=== PATIENT | female | born 1995 | race Two or more races ===

== ENCOUNTER 2019-01-11 16:34 | Emergency (ER) | payer MEDICAID ==
[~2019-01-11] VITALS: Ht 175.3 cm; Wt 79.2 kg
[2019-01-11 18:12] VITALS: BP 101/68
[2019-01-11 18:47] LABS: Basophils # (auto) 0 uL; Basophils % (auto) 0.4 % (0.0-2.0); Eosinophils # (auto) 0.1 uL; Hematocrit 35.2 % (36.0-46.0); Hemoglobin 11.6 g/dL (12.2-16.2); Lymphocytes # (auto) 1.7 uL; Lymphocytes % (auto) 19.9 % (10.0-50.0); Mean Corpuscular Hemoglobin 28.6 pg (28.0-32.0); Mean Corpuscular Hgb Conc. 32.9 g/dL (32.0-36.0); Monocytes # (auto) 0.6 uL; Monocytes % (auto) 6.7 % (0.0-12.0); Nucleated Red Blood Cells % 0.1 %; Platelet Count (auto) 250 10^3/uL (140-450); Red Blood Cells 4.05 10^6/uL (4.0-5.20); Red Cell Distribution Width 15.5 % (11.8-14.3); White Blood Cell 8.4 10^3/uL (4.4-10.8)
[2019-01-11 20:49] LABS: Urine Bacteria MOD /hpf (None Seen); Urine Blood 1+ /uL (Negative); Urine Specific Gravity 1.024 (1.001-1.035); Urine WBC 116 /hpf (0 - 5)
== END 2019-01-11 19:52 | disposition home or self-care (01) ==
LOC: ER 16:34
DX: O20.0 Threatened abortion (principal); O99.332 Smoking (tobacco) complicating pregnancy, second trimester; Z3A.16 16 weeks gestation of pregnancy
CPT/HCPCS: 36415; 76805; 81001; 84702; 85025; 94761

== ENCOUNTER 2019-06-05 20:38 | Observation (INO) | payer MEDICAID | END 2019-06-06 00:45 | disposition home or self-care (01) | DRG 566 | LOC: LDRP 20:38 | PROVIDERS: ADMIT Obstetrics & Gynecology; ATTEND Obstetrics & Gynecology | DX: O40.3XX0 Polyhydramnios, third trimester, not applicable or unspecified (principal); F17.200 Nicotine dependence, unspecified, uncomplicated; O99.333 Smoking (tobacco) complicating pregnancy, third trimester; Z3A.37 37 weeks gestation of pregnancy | CPT/HCPCS: 59025; 76818; 81002; G0378 ==

== ENCOUNTER 2019-06-08 19:55 | Observation (INO) | payer MEDICAID ==
[2019-06-08] MEDS ORDERED: ACETAMINOPHEN 325 MG TAB PO ONE (22:15)
== END 2019-06-08 22:49 | disposition home or self-care (01) | DRG 566 ==
LOC: LDRP 19:55
PROVIDERS: ADMIT Specialist; ATTEND Specialist
DX: O26.893 Other specified pregnancy related conditions, third trimester (principal); F17.210 Nicotine dependence, cigarettes, uncomplicated; K08.89 Other specified disorders of teeth and supporting structures; R51 Headache; O99.89 Other specified diseases and conditions complicating pregnancy, childbirth and the puerperium; O99.333 Smoking (tobacco) complicating pregnancy, third trimester; Z3A.37 37 weeks gestation of pregnancy
CPT/HCPCS: 59025; 76818; 81002; G0378

== ENCOUNTER 2019-06-11 19:13 | Observation (INO) | payer MEDICAID | END 2019-06-11 20:26 | disposition home or self-care (01) | DRG 566 | LOC: LDRP 19:13 | PROVIDERS: ADMIT Obstetrics & Gynecology; ATTEND Obstetrics & Gynecology | DX: O40.3XX0 Polyhydramnios, third trimester, not applicable or unspecified (principal); F17.200 Nicotine dependence, unspecified, uncomplicated; O99.333 Smoking (tobacco) complicating pregnancy, third trimester; Z3A.38 38 weeks gestation of pregnancy | CPT/HCPCS: 59025; 76818; 81002; G0378 ==

== ENCOUNTER 2019-06-14 19:52 | Observation (INO) | payer MEDICAID ==
[~2019-06-14] VITALS: Ht 175.3 cm; Wt 98.0 kg
[2019-06-14] MEDS ORDERED: LACTATED RINGER'S 1,000 ML IV ONE (22:00)
== END 2019-06-14 23:15 | disposition home or self-care (01) | DRG 566 ==
LOC: LDRP 19:52
PROVIDERS: ADMIT Specialist; ATTEND Specialist
DX: O40.3XX0 Polyhydramnios, third trimester, not applicable or unspecified (principal); F17.200 Nicotine dependence, unspecified, uncomplicated; O99.333 Smoking (tobacco) complicating pregnancy, third trimester; Z3A.38 38 weeks gestation of pregnancy
CPT/HCPCS: 59025; 76818; 81002; G0378

== ENCOUNTER 2019-06-20 04:42 | Inpatient (IN) | payer MEDICAID ==
[2019-06-20] VITALS (8 sets, daily range): BP systolic 116–130; BP diastolic 61–74
[~2019-06-20] VITALS: Ht 175.3 cm; Wt 98.0 kg
[2019-06-20] MEDS ORDERED: LACT. RINGERS/OXYTOCIN 20UNITS 1,000 ML IV SCH ×2 (05:05→15:46)
[2019-06-20] MEDS ORDERED: DERMOPLAST 60ML BOTTLE TOP PRN (05:15)
[2019-06-20] MEDS ORDERED: METHYLERGONOVINE MALEATE 0.2 MG/ML AMP IM PRN (05:15)
[2019-06-20] MEDS ORDERED: PHISODERM TOP SOLN 240ML BTL TOP PRN (05:15)
[2019-06-20] MEDS ORDERED: WITCH HAZEL-GLYCERIN PAD TOP PRN (05:15)
[2019-06-20] MEDS ORDERED: LIDOCAINE 2%HCL (LOCAL ANESTH.) INJ 20ML MDV ID PRN (05:15)
[2019-06-20] MEDS: LACTATED RINGER'S 1,000 ML IV SCH ×3 (05:44→09:15)
[2019-06-20] MEDS ORDERED: BUTORPHANOL TARTRATE 2 MG/1 ML VIAL IV PRN (05:45)
[2019-06-20] MEDS ORDERED: PENICILLIN G POT 5MIL/D5 50ML 50 ML IV ONE ×2 (06:00→06:03)
[2019-06-20 06:18] LABS: Basophils # (auto) 0 uL; Hemoglobin 8.6 g/dL (12.2-16.2); Lymphocytes # (auto) 1.5 uL; Lymphocytes % (auto) 20.2 % (10.0-50.0); Monocytes # (auto) 0.4 uL; Neutrophils # (auto) 5.4 uL; Red Blood Cells 3.32 10^6/uL (4.0-5.20); White Blood Cell 7.4 10^3/uL (4.4-10.8)
[2019-06-20 06:19] LABS: Basophils % (auto) 0.5 % (0.0-2.0); Eosinophils # (auto) 0 uL; Eosinophils % (auto) 0.6 % (0.0-7.0); Hematocrit 26.6 % (36.0-46.0); Mean Corpuscular Hemoglobin 25.9 pg (28.0-32.0); Mean Corpuscular Hgb Conc. 32.3 g/dL (32.0-36.0); Mean Corpuscular Volume 80.2 fL (80.0-100.0); Monocytes % (auto) 5.8 % (0.0-12.0); Neutrophils % (auto) 72.9 % (37.0-80.0); Platelet Count (auto) 223 10^3/uL (140-450)
[2019-06-20 06:26] LABS: Albumin 2.4 g/dL (3.4-5.0); BUN/Creatinine Ratio 13.6; Calcium 8.5 mg/dL (8.5-10.1); Potassium 3.9 mmol/L (3.5-5.1)
[2019-06-20 06:28] LABS: Bilirubin, Total 0.4 mg/dL (0.2-1.0); Total Protein 6.3 g/dL (6.4-8.2)
[2019-06-20 06:33] LABS: INR < 0.93 (0.9-1.15); Partial Thromboplastin Time 25.6 sec (23.64-32.05)
[2019-06-20] MEDS ORDERED: ePHEDrine SULFATE 50 MG/ML AMP IV ONE (07:30)
[2019-06-20] MEDS ORDERED: NALOXONE HCL 0.4 MG/ML VIAL IV ONE (07:30)
[2019-06-20] MEDS ORDERED: fentaNYL W ROPIVACAINE 150 ML EPI SCH (07:30)
[2019-06-20] MEDS ORDERED: PENICILLIN G POTASSIUM 2,500,000 UNITS in D5W 5% 50 ML IV SCH (10:00)
[2019-06-20 10:34] LABS: Urine Bacteria NONE SEEN /hpf (None Seen); Urine Blood Negative /uL (Negative); Urine Specific Gravity 1.013 (1.001-1.035); Urine WBC 1 /hpf (0 - 5)
[2019-06-20 10:40] LABS: Alcohol, Urine < 3.0 mg/dL (0-5); Amphetamine Screen, Urine NEGATIVE (NEGATIVE); Barbiturate Scree,Urine NEGATIVE (NEGATIVE); Benzodiazephine Screen, Urine NEGATIVE (NEGATIVE); Cannabinoid Screen, Urine NEGATIVE (NEGATIVE); Cocaine Screen, Urine NEGATIVE (NEGATIVE); Opiate Scree,Urine NEGATIVE (NEGATIVE); Phencyclidine Screen, Urine NEGATIVE (NEGATIVE)
[2019-06-20] MEDS ORDERED: ONDANSETRON HCL 4 MG/2 ML VIAL IV PRN (11:30)
[2019-06-20] MEDS: ACETAMINOPHEN 325 MG TAB PO PRN (13:13)
--- NOTE | 2019-06-20 13:45 | NUR ---
PT has pox like ramírez on abd which some appear to be open sores and also has ramírez on bilateral legs and upper back. PT states she recently broke out in a rash and picked at it ad that her boyfriend also got the rash. PT states she thinks it might be "bed bugs Addendum: 06/20/19 at 1501 by John Navarrete RN Amended: Links added.
[2019-06-20] MEDS ORDERED: LABETALOL HCL 200 MG TAB PO ONE (14:00)
--- NOTE | 2019-06-20 14:17 | NUR ---
Report received from Veronica Navarrete RN on stable pt. Assumed care.
[2019-06-20 14:18] LABS: Basophils # (auto) 0 uL; Eosinophils # (auto) 0 uL; Lymphocytes # (auto) 0.9 uL; Monocytes # (auto) 0.6 uL
[2019-06-20 14:20] LABS: Basophils % (auto) 0.2 % (0.0-2.0); Eosinophils % (auto) 0.1 % (0.0-7.0); Hematocrit 24.9 % (36.0-46.0); Lymphocytes % (auto) 7.1 % (10.0-50.0); Mean Corpuscular Hgb Conc. 32.2 g/dL (32.0-36.0); Mean Corpuscular Volume 80.6 fL (80.0-100.0); Monocytes % (auto) 4.9 % (0.0-12.0); Neutrophils # (auto) 10.5 uL; Neutrophils % (auto) 87.7 % (37.0-80.0); Platelet Count (auto) 198 10^3/uL (140-450); Red Blood Cells 3.09 10^6/uL (4.0-5.20); Red Cell Distribution Width 16.1 % (11.8-14.3); White Blood Cell 11.9 10^3/uL (4.4-10.8)
--- NOTE | 2019-06-20 14:30 | NUR ---
Report given to Mirlande Lopez RN
--- NOTE | 2019-06-20 14:35 | NUR ---
Lolis care performed and pads changed, ice pad placed for moderate swelling. Bleeding moderate to heavy with fundus at u and firm. retana catheter emptied at this time
[2019-06-20 14:36] LABS: Albumin 1.9 g/dL (3.4-5.0); Calcium 7.8 mg/dL (8.5-10.1); Potassium 3.7 mmol/L (3.5-5.1); Uric Acid 6.3 mg/dL (2.6-6.0)
[2019-06-20 14:38] LABS: Bilirubin, Total 0.3 mg/dL (0.2-1.0)
[2019-06-20 14:40] LABS: INR 0.93 (0.9-1.15); Partial Thromboplastin Time 29.1 sec (23.64-32.05)
--- NOTE | 2019-06-20 14:47 | NUR ---
Call placed to Dr Latham, updated him on PT status including PT bleeding is moderated to heavy, temp now 99.7, and BP 127/61 and labetalol has not been given, CBC results. Orders received to hold labetalol, repeat CBC in AM, give second bag of pit at 125ml/hr. Orders read back to be implemented
[2019-06-20] MEDS: IBUPROFEN 600 MG TAB PO PRN ×2 (16:24→20:04)
--- NOTE | 2019-06-20 16:30 | NUR ---
Deedee care performed, moderate amount of bleeding noted, tucks pads, phisoderm, and ice pack applied to perineum. New under pad, deedee pad, and gown provided.
--- NOTE | 2019-06-20 17:22 | NUR ---
Ambulation: VS taken, fundus and lochia assessed. Pt assisted to side of bed to dangle prior to ambulation. Pt denies any dizziness. Patient OOB with standby assistance by RN. Patient ambulated to chair with steady gait. Clean gown provided and bed linen changed. Patient ambulated back to bed with steady gait and no distress noted.
--- NOTE | 2019-06-20 17:39 | NUR ---
Dr. Latham at bedside, vaginal bleeding assessed. Orders received to keep Bynum catheter in place until tomorrow morning, continue to run Pitocin infusion, and CBC redraw in the morning.
--- NOTE | 2019-06-20 18:18 | NUR ---
Report given to Donavan Pandey RN on stable pt. Relinquished care. Addendum: 06/20/19 at 1823 by Tiara Lopez RN Amended: Links added.
--- NOTE | 2019-06-20 18:30 | NUR ---
Opening Shift Note Received report from COSTA Menjivar and assumed care of patient, awake and alert. No S/S of distress/SOB or pain. With IV at R hand infusing LR + 20 units Pitocin infusing well at 125 ml/ hr. Bynum catheter intact and draining well to clear yellow urine output . At this time vaginal bleeding is minimal . Fundus is firm. Instructed patient to call for assist if needed and patient verbalized understanding. will continue to monitor .
[2019-06-20] MEDS: LABETALOL HCL 200 MG TAB PO SCH (23:21)
--- NOTE | 2019-06-20 23:45 | NUR ---
Rounds: Patient having heavy bleeding with blood clots after fundal massage. Fundus is firm . Lolis care done and noted that perineal area is still very edematous . Ice pack applied . QBL is 210 ML . Will continue to monitor bleeding and reassess patient in 1 hour.
[2019-06-21] VITALS (7 sets, daily range): BP systolic 91–127; BP diastolic 53–71
[2019-06-21] MEDS: IBUPROFEN 600 MG TAB PO PRN ×3 (00:10→17:31)
[2019-06-21] MEDS ORDERED: PREN-153 OR (00:10)
--- NOTE | 2019-06-21 00:10 | NUR ---
Pain: Patient c/o abdominal cramps and burning pain in her perineal area. Pain scale is 7/10.Motrin 600 mg PO given for pain.
--- NOTE | 2019-06-21 01:00 | NUR ---
Re-assessment: Vaginal bleeding is minimal. Patient relieved of pain. Will continue to monitor.
[2019-06-21 06:06] LABS: RPR Non Reactive (Non Reactive)
--- NOTE | 2019-06-21 06:10 | NUR ---
Report received from Donavan Pandey RN on stable pt. Assumed care. Addendum: 06/21/19 at 0622 by Tiara Lopez RN Amended: Links added.
[2019-06-21 06:34] LABS: Basophils # (auto) 0 uL; Eosinophils # (auto) 0 uL; Eosinophils % (auto) 0.4 % (0.0-7.0); Monocytes # (auto) 0.5 uL
[2019-06-21 06:39] LABS: Basophils % (auto) 0.4 % (0.0-2.0); Hematocrit 22.2 % (36.0-46.0); Hemoglobin 7.3 g/dL (12.2-16.2); Lymphocytes # (auto) 1.5 uL; Lymphocytes % (auto) 16.4 % (10.0-50.0); Mean Corpuscular Hemoglobin 26.1 pg (28.0-32.0); Mean Corpuscular Hgb Conc. 32.7 g/dL (32.0-36.0); Mean Corpuscular Volume 79.7 fL (80.0-100.0); Monocytes % (auto) 5.8 % (0.0-12.0); Neutrophils # (auto) 6.9 uL; Platelet Count (auto) 176 10^3/uL (140-450); Red Blood Cells 2.79 10^6/uL (4.0-5.20)
[2019-06-21] MEDS: ACETAMINOPHEN 325 MG TAB PO PRN (07:00)
--- NOTE | 2019-06-21 09:29 | NUR ---
Dr. Malave called and informed of CBC results to include Hgb 7.3 and Hct 22.2. Orders received to give pt Iron 325mg PO TID. Orders received to keep Bynum catheter in place due to swollen perineum.
[2019-06-21] MEDS: LACTATED RINGER'S 1,000 ML IV SCH (09:43)
[2019-06-21] MEDS: FERROUS SULFATE 325 MG TAB PO SCH ×3 (09:48→17:31)
[2019-06-21] MEDS: LABETALOL HCL 200 MG TAB PO SCH ×2 (09:51→21:43)
--- NOTE | 2019-06-21 11:30 | NUR ---
Pericare and catheter care performed, new underpad and peripad provided to pt. Dermoplast and ice pack applied to perineum. Addendum: 06/21/19 at 1223 by Tiara Lopez RN Amended: Links added.
--- NOTE | 2019-06-21 13:29 | NUR ---
Pt assisted to side of bed to dangle prior to ambulation. Pt denies any dizziness. Patient OOB with standby assistance by RN. Patient ambulated to chair with steady gait.
--- NOTE | 2019-06-21 15:15 | NUR ---
Pt educated on the risks of smoking to herself and her , pt also educated on the risk for infection via Bynum catheter. Pt signs smoking consent and verbalizes understanding. Pt requests to go outside at this time. Pt taken outside via wheelchair by significant other. No signs of distress or discomfort noted.
--- NOTE | 2019-06-21 17:00 | NUR ---
Pt back to bed and positions self in bed. Lolis care performed. Fundus noted to be at U and midline with a small amount of bleeding noted, with moderate swelling of the perineum. Lolis pad. mesh underwear, and underpad changed, Dermoplast and ice pack applied to perineum. 10 lb sand bad placed on perineum per Dr. Malave's orders. Pt tolerated well, no signs of distress noted. Dorene Montalvo-Alana sr vice president at bedside to assess swelling or perineum.
--- NOTE | 2019-06-21 18:15 | NUR ---
Report given to Veronica Desir RN on stable pt. Relinquished care. Addendum: 06/21/19 at 1830 by Tiara Lopez RN Amended: Links added.
[2019-06-22] MEDS: IBUPROFEN 600 MG TAB PO PRN (02:28)
[2019-06-22 02:37] VITALS: BP 118/61
--- NOTE | 2019-06-22 03:00 | NUR ---
Lolis care and catheter care performed. New pads placed.
--- NOTE | 2019-06-22 05:35 | NUR ---
Received verbal order from Dr. Malave to change Labetalol 200 mg PO BID to Labetalol 100 mg PO BID.
[2019-06-22 06:55] VITALS: BP 124/73
--- NOTE | 2019-06-22 07:15 | NUR ---
Call placed to Dr Latham, updated him on PT status including retana still in place, orders received to d/c retana and prepare PT for d/c once voiding
--- NOTE | 2019-06-22 08:20 | NUR ---
DR. ESCALONA AT PT BEDSIDE, STATUS UPDATE GIVEN, PT TO VOID 2 TIMES AFTER PILLAI CATHETER REMOVAL. DR. ESCALONA ASSESSED PTS PERINEUM, NO SWELLING NOTED UPON ASSESSMENT. ORDERS RECEIVED FROM DR. ESCALONA FOR PATIENT TO BE DISCHARGED HOME AND TO FOLLOW UP IN OB CLINIC IN 2 WEEKS. READ BACK AND VERIFIED ORDERS. WILL CARRY OUT.
--- NOTE | 2019-06-22 08:20 | NUR ---
Retana catheter dc'd Order to discontinue retana catheter. Retana dc'd with clean technique following deflation of balloon by Veronica Navarrete RN. Patient tolerated well with no complaints of pain. Continue care.
--- NOTE | 2019-06-22 08:30 | NUR ---
IV removal 18G IV DC'd with clean sterile technique, catheter fully intact. Pressure dressing applied to site. Patient tolerated well.
--- NOTE | 2019-06-22 08:40 | NUR ---
DR. ESCALONA NOTIFIED OF PTS TRENDING VITAL SIGNS AND ALL LAB VALUES. ORDERS RECEIVED FROM DR. ESCALONA TO CALL IN FES04 325MG PO TID # 90 WITH 3 REFILLS, COLACE 100MG PO BID #60, LABETALOL 100MG PO BID # 60, MOTRIN 600MG PO [id number] CRAMPS # 60 TO PTS PREFERRED PHARMACY. PER DR. ESCALONA, NOTIFY PATIENT TO ASSESS BLOOD PRESSURE BEFORE TAKING LABETALOL MEDICATION, IF SBP <100 AND/ OR DBP <70 HOLD LABETALOL DOSE. READ BACK AND VERIFIED ORDERS. WILL CARRY OUT AND NOTIFY PATIENT.
[2019-06-22] MEDS: FERROUS SULFATE 325 MG TAB PO SCH ×2 (08:49→12:00)
--- NOTE | 2019-06-22 08:52 | NUR ---
CARLOS ESTEVEZ states they want to leave the floor Against Medical Advice (AMA) to go outside and smoke. Patient encouraged to stay on floor and not smoke. Dr. Latham notified of patient's wishes. Patient advised of the risks and benefits of leaving AMA. Patient verbalized understanding, signed AMA form already in pts chart. Pt ambulated via steady gait outside to smoke accompanied by spouse, no distress noted. Infant brought to nursery by RN.
--- NOTE | 2019-06-22 09:11 | NUR ---
PT RETURNED TO ROOM 5 VIA STEADY GAIT ACCOMPANIED BY SPOUSE, NO DISTRESS NOTED. WILL CONTINUE TO MONITOR.
--- NOTE | 2019-06-22 09:39 | NUR ---
CALLED IN PTS PRESCRIPTIONS TO [facility] [place] [facility] AT [phone], SPOKE WITH PHARMACIST ELIS. PT NOTIFIED AND STATES SHE WILL [employer] PRESCRIPTIONS ONCE DISCHARGED. WILL CONTINUE TO MONITOR.
[2019-06-22 09:52] VITALS: BP 116/77
[2019-06-22] MEDS ORDERED: LABETALOL HCL 200 MG TAB PO SCH (10:00)
[2019-06-22 10:52] VITALS: BP 118/77
--- NOTE | 2019-06-22 11:22 | NUR ---
Discharge: Discharge instructions given as ordered. Pt encouraged to follow up with [facility]ING SUPERVISOR as instructed. All questions and concerns addressed. Patient verbalized understanding. Medication reconciliation completed and copy given to patient. Patient encouraged to prepare to depart unit.
--- NOTE | 2019-06-22 12:30 | NUR ---
Discharge: Patient taken to vehicle ambulatory via steady gait, pt declined wheelchair with all personal belongings, accompanied by staff and spouse. No distress noted at time of departure, no adverse changes in status since initial assessment.
== END 2019-06-22 12:30 | disposition home or self-care (01) | DRG 560 ==
LOC: LDRP 04:42 → OBSVTOIN 05:55 → LDRP 06:00
PROVIDERS: ADMIT Specialist; ATTEND Specialist
PROC: 10E0XZZ Delivery of Products of Conception, External Approach (ICD-10-PCS; principal; 2019-06-20)
PROC: 0HQ9XZZ Repair Perineum Skin, External Approach (ICD-10-PCS; 2019-06-20)
PROC: 3E0P7VZ Introduction of Hormone into Female Reproductive, Via Natural or Artificial Opening (ICD-10-PCS; 2019-06-20)
PROC: 3E0R3BZ Introduction of Anesthetic Agent into Spinal Canal, Percutaneous Approach (ICD-10-PCS; 2019-06-20)
PROC: 00HU33Z Insertion of Infusion Device into Spinal Canal, Percutaneous Approach (ICD-10-PCS; 2019-06-20)
DX: O99.02 Anemia complicating childbirth (principal); O70.0 First degree perineal laceration during delivery; O99.214 Obesity complicating childbirth; Z37.0 Single live birth; Z3A.39 39 weeks gestation of pregnancy
CPT/HCPCS: 36415; 59025; 59409; 80053; 80307; 81001; 81002; 84112; 84550; 85025; 85610; 85730; 86592; 86850; 86900; 86901; 96365; 96366; 96375; G0378; J2540; J2590; J3010; J7060